=== PATIENT | female | born 1985 | race Caucasian/White ===

== ENCOUNTER 2022-11-12 12:20 | Outpatient (CLI) | payer BC ==
[2022-11-12 23:06] LABS: CANDIDA GROUP DNA POSITIVE (NEGATIVE)
[2022-11-12 23:07] LABS: CANDIDA GLABRATA DNA NEGATIVE (NEGATIVE)
[2022-11-12 23:08] LABS: BACTERIAL VAGINOSIS DNA NEGATIVE (NEGATIVE); CANDIDA KRUSEI DNA NEGATIVE (NEGATIVE); TRICHOMONAS VAGINALIS DNA NEGATIVE (NEGATIVE)
[2022-11-14 07:09] LABS: HIV SCREEN 4TH GENERATION Non Reactive (Non Reactive)
[2022-11-15 01:03] LABS: CHLAMYDIA TRACHOMATIS DNA NEGATIVE (NEGATIVE); NEISSERIA GONORRHOEAE DNA NEGATIVE (NEGATIVE)
[2022-11-15 03:09] LABS: HCV AB Non Reactive (Non Reactive); HSV 2 IGG TYPE SPEC <0.91 index (0.00-0.90); RPR Non Reactive (Non Reactive)
== END 2022-11-12 23:59 | disposition home or self-care (01) ==
LOC: LAB.N 12:20
PROVIDERS: ATTEND Nurse Practitioner
DX: N89.8 Other specified noninflammatory disorders of vagina (principal); Z11.3 Encounter for screening for infections with a predominantly sexual mode of transmission
CPT/HCPCS: 81514; 86592; 86695; 86696; 86803; 87389; 87491; 87591; 87661

== ENCOUNTER 2023-07-03 12:16 | Outpatient (CLI) | payer BC ==
[2023-07-03 12:32] LABS: BASOPHILS % (AUTO) 0.6 %; EOSINOPHILS # (AUTO) 0.1 10^3/uL (0.0-0.7); EOSINOPHILS % (AUTO) 1.6 %; HGB - HEMOGLOBIN 14.8 g/dL (12.0-16.0); LYMPHOCYTES # (AUTO) 2.5 10^3/uL (1.5-3.5); LYMPHOCYTES % (AUTO) 36.8 %; MEAN CORPUSCULAR HEMOGLOBIN 29.4 pg (27.0-31.0); MEAN CORPUSCULAR HGB CONC 32.2 g/dL (32.0-36.0); MEAN CORPUSCULAR VOLUME 91.5 fL (81.0-99.0); MEAN PLATELET VOLUME 9.2 fL (7.9-10.8); MONOCYTES # (AUTO) 0.4 10^3/uL (0.0-1.0); MONOCYTES % (AUTO) 5.7 %; NEUTROPHILS # (AUTO) 3.7 10^3/uL (1.5-6.6); PLT - PLATELET COUNT 353 10^3/uL (130-450); RED BLOOD COUNT 5.03 10^6/uL (4.20-5.40); RED CELL DISTRIBUTION WIDTH 12.2 % (12.0-15.0); WHITE BLOOD COUNT 6.8 x10^3/uL (4.8-10.8)
[2023-07-03 12:50] LABS: ALBUMIN 4.5 g/dL (3.2-5.5); ALBUMIN/GLOBULIN RATIO 1.3 (1.0-2.2); ALKALINE PHOSPHATASE 76 IU/L (42-121); ALT ALANINE AMINOTRANSFERASE 9 IU/L (10-60); AST ASPARTATE AMINOTRANSFERASE 11 IU/L (10-42); BILIRUBIN,TOTAL 0.4 mg/dL (0.2-1.0); BUN - BLOOD UREA NITROGEN 17 mg/dL (6-20); CALCIUM 9.6 mg/dL (8.5-10.3); CARBON DIOXIDE - CO2 30 mmol/L (21-32); CHLORIDE 103 mmol/L (101-111); CHOL/HDL RATIO 3.7 (<4.4); CHOLESTEROL 173 mg/dL; CREATININE 0.7 mg/dL (0.6-1.3); CRP - C-REACTIVE PROTEIN < 0.5 mg/dL (<0.5); GFR - MDRD 95 (>89); GLUCOSE 91 mg/dL (74-104); HDL CHOLESTEROL 47 mg/dL; LDL CHOLESTEROL,CALCULATED 110 mg/dL; LDL/HDL RATIO 2.3 (<4.4); POTASSIUM 3.9 mmol/L (3.5-4.5); SODIUM 138 mmol/L (135-145); TOTAL PROTEIN 7.9 g/dL (6.4-8.9); TRIGLYCERIDES 82 mg/dL (48-352); URIC ACID 5.6 mg/dL (2.3-6.6); VLDL CHOLESTEROL 16 mg/dL
[2023-07-03 15:49] LABS: RHEUMATOID FACTOR NEGATIVE (Negative)
--- NOTE | 2023-07-03 15:52 | XRAY Report ---
PROCEDURE: Knee 4 View BILAT INDICATIONS: KNEE PAIN TECHNIQUE: 4 views of the bilateral knee(s) were acquired. COMPARISON: None. FINDINGS: Bones: No fractures or dislocations. No suspicious bony lesions. There is minimal appearance of b ilateral medial compartment narrowing. No erosions. Bilateral patellar osteophytes are present. Soft tissues: No knee joint effusion. No suspicious soft tissue calcifications or masses. IMPRESSION: Early arthritic change in the medial compartments. Reviewed by: Layne Gill MD on 07/03/2023 3:51 PM PDT Approved by: Layne Gill MD on 07/03/2023 3:51 PM PDT Station ID: [id number]
[2023-07-04 16:08] LABS: ANTI-DNA (DS) AB QN 1 IU/mL (0-9)
[2023-07-05 18:07] LABS: ANTINUCLEAR ANTIBODIES IFA Negative (.); CYCLIC CITRULLINATED PEP IGG/A 2 units (0-19)
== END 2023-07-03 12:17 | disposition home or self-care (01) ==
LOC: DI 12:16
PROVIDERS: ATTEND Nurse Practitioner
DX: M17.0 Bilateral primary osteoarthritis of knee (principal); I10 Essential (primary) hypertension; Z13.220 Encounter for screening for lipoid disorders; F41.9 Anxiety disorder, unspecified; M25.50 Pain in unspecified joint
CPT/HCPCS: 36415; 80053; 80061; 83721; 84443; 84550; 85025; 85651; 86038; 86140; 86200; 86225; 86430

== ENCOUNTER 2023-09-21 18:50 | Outpatient (CLI) | payer BC ==
[2023-09-21 19:10] LABS: BASOPHILS % (AUTO) 0.8 %; HCT - HEMATOCRIT 39.8 % (37.0-47.0); HGB - HEMOGLOBIN 12.9 g/dL (12.0-16.0); LYMPHOCYTES % (AUTO) 64.1 %; MEAN CORPUSCULAR HEMOGLOBIN 29.5 pg (27.0-31.0); MEAN CORPUSCULAR HGB CONC 32.4 g/dL (32.0-36.0); MEAN CORPUSCULAR VOLUME 91.1 fL (81.0-99.0); MEAN PLATELET VOLUME 8.6 fL (7.9-10.8); MONOCYTES % (AUTO) 7.1 %; NEUTROPHILS % (AUTO) 26.8 %; PLT - PLATELET COUNT 291 10^3/uL (130-450); RED BLOOD COUNT 4.37 10^6/uL (4.20-5.40); RED CELL DISTRIBUTION WIDTH 13.1 % (12.0-15.0); WHITE BLOOD COUNT 10.4 x10^3/uL (4.8-10.8)
[2023-09-21 19:19] LABS: ABNORMAL LYMPHS % (MANUAL) 0 %; BAND NEUTROPHILS % (MANUAL) 0 %
[2023-09-21 19:37] LABS: THYROID STIMULATING HORMONE 1.6 uIU/mL (0.34-5.60)
[2023-09-21 19:51] LABS: BASOPHILS # (MANUAL) 0.1 10^3/uL (0-0.1); BASOPHILS % (MANUAL) 1 %; LYMPHOCYTES # (MANUAL) 6.1 10^3/uL (1.5-3.5); LYMPHOCYTES % (MANUAL) 59 %; MONOCYTES # (MANUAL) 0.8 10^3/uL (0.0-1.0); NEUTROPHILS # (MANUAL) 3.3 10^3/uL (1.5-6.6)
[2023-09-21 20:02] LABS: DIFFERENTIAL COMMENT MANUAL DIFFERENTIAL; PLATELET ESTIMATE, MANUAL NORMAL (130-450,000) (NORMAL); PLATELET MORPHOLOGY NORMAL APPEARANCE (NORMAL); RBC MORPHOLOGY (MULTIPLE) NORMAL APPEARANCE (NORMAL); WBC MORPHOLOGY (MULTIPLE) NORMAL APPEARANCE (NORMAL)
== END 2023-09-21 18:51 | disposition home or self-care (01) ==
LOC: LAB 18:50
PROVIDERS: ATTEND Nurse Practitioner
DX: R00.2 Palpitations (principal)
CPT/HCPCS: 36415; 84439; 84443; 85025

== ENCOUNTER 2023-09-21 19:02 | Outpatient (CLI) | payer BC ==
--- NOTE | 2023-09-22 08:57 | Ultrasound Report ---
PROCEDURE: Pelvic w/Transvaginal INDICATIONS: DYSPAREUNIA TECHNIQUE: Real-time scanning was performed of the pelvic organs, with image documentation. Additional endovagi nal scanning was necessary due to incomplete visualization of the adnexal and endometrial structures by transabdominal scanning. COMPARISON: None. FINDINGS: Uterus: Uterus is anteverted and normal in size at 8.6 x 4.1 x 4.7 cm. The myometrium is heterogene ous. The endometrium measures 4.7 mm in combined thickness. Scattered punctate calcifications withi n the endometrium. It mid posterior subserosal fibroid measuring 1 cm. Ovaries: The right ovary measures 3.4 x 1.9 x 3.9 cm, with a calculated ovarian volume of 13.3 cc. The left ovary measures 5.0 x 2.5 x 3.6 cm, with a calculated ovarian volume of 24.1 cc. Bilateral co mplex cysts measuring up to 3.1 cm in the left ovary. Less than 12 follicles can be seen in each ovar y. Other: No pathologic free abdominal or pelvic fluid. IMPRESSION: 1.No cause for patient's symptoms is identified. 2.Complex cysts within the bilateral ovaries with the largest in the left ovary measuring 3.1 cm. Rec ommend 6-12 week follow-up ultrasound. 3.Endometrium is normal in thickness with scattered punctate calcifications. 4.Subserosal fibroid measuring 1 cm. Reviewed by: Clay Kirk MD on 09/22/2023 8:56 AM PST Approved by: Clay Kirk MD on 09/22/2023 8:56 AM PST Station ID: [id number]
== END 2023-09-21 19:03 | disposition home or self-care (01) ==
LOC: DI 19:02
PROVIDERS: ATTEND Nurse Practitioner
DX: N94.10 Unspecified dyspareunia (principal); N83.292 Other ovarian cyst, left side; N83.291 Other ovarian cyst, right side; D25.2 Subserosal leiomyoma of uterus

== ENCOUNTER 2023-10-06 08:00 | Outpatient (CLI) | payer BC ==
[2023-10-06 20:47] LABS: CHLAMYDIA TRACHOMATIS DNA NEGATIVE (NEGATIVE); NEISSERIA GONORRHOEAE DNA NEGATIVE (NEGATIVE)
[2023-10-06 21:34] LABS: BACTERIAL VAGINOSIS DNA POSITIVE (NEGATIVE); CANDIDA GLABRATA DNA NEGATIVE (NEGATIVE); CANDIDA GROUP DNA NEGATIVE (NEGATIVE); CANDIDA KRUSEI DNA NEGATIVE (NEGATIVE); TRICHOMONAS VAGINALIS DNA NEGATIVE (NEGATIVE)
== END 2023-10-06 23:59 | disposition home or self-care (01) ==
LOC: LAB.WC 08:00
PROVIDERS: ATTEND Obstetrics & Gynecology
DX: N94.10 Unspecified dyspareunia (principal)
CPT/HCPCS: 81514; 87491; 87591; 87661

== ENCOUNTER 2023-10-17 15:21 | Outpatient (CLI) | payer BC | END 2023-10-17 15:22 | disposition home or self-care (01) | LOC: LAB 15:21 | PROVIDERS: ATTEND Obstetrics & Gynecology | DX: N89.8 Other specified noninflammatory disorders of vagina (principal) | CPT/HCPCS: 36415; 82670 ==

== ENCOUNTER 2023-10-19 08:00 | Outpatient (CLI) | payer BC ==
[2023-10-19 19:05] LABS: BACTERIAL VAGINOSIS DNA NEGATIVE (NEGATIVE); CANDIDA GLABRATA DNA NEGATIVE (NEGATIVE); CANDIDA GROUP DNA POSITIVE (NEGATIVE); CANDIDA KRUSEI DNA NEGATIVE (NEGATIVE); TRICHOMONAS VAGINALIS DNA NEGATIVE (NEGATIVE)
== END 2023-10-19 23:59 | disposition home or self-care (01) ==
LOC: LAB.N 08:00
PROVIDERS: ATTEND Physician Assistant Medical
DX: J02.9 Acute pharyngitis, unspecified (principal); L29.8 Other pruritus
CPT/HCPCS: 81514; 87070; 87086

== ENCOUNTER 2024-02-22 08:00 | Outpatient (CLI) | payer BC ==
[2024-02-22 23:02] LABS: CHLAMYDIA TRACHOMATIS DNA NEGATIVE (NEGATIVE); NEISSERIA GONORRHOEAE DNA NEGATIVE (NEGATIVE); TRICHOMONAS VAGINALIS DNA NEGATIVE (NEGATIVE)
== END 2024-02-22 23:59 | disposition home or self-care (01) ==
LOC: LAB.WC 08:00
PROVIDERS: ATTEND Obstetrics & Gynecology
DX: Z11.3 Encounter for screening for infections with a predominantly sexual mode of transmission (principal)
CPT/HCPCS: 87491; 87591; 87661

== ENCOUNTER 2024-03-27 08:00 | Outpatient (CLI) | payer BC ==
[2024-03-27 22:51] LABS: BACTERIAL VAGINOSIS DNA POSITIVE (NEGATIVE); CANDIDA GLABRATA DNA NEGATIVE (NEGATIVE); CANDIDA GROUP DNA POSITIVE (NEGATIVE); CANDIDA KRUSEI DNA NEGATIVE (NEGATIVE); TRICHOMONAS VAGINALIS DNA NEGATIVE (NEGATIVE)
== END 2024-03-27 23:59 | disposition home or self-care (01) ==
LOC: LAB.N 08:00
PROVIDERS: ATTEND Physician Assistant Medical
DX: N89.8 Other specified noninflammatory disorders of vagina (principal)
CPT/HCPCS: 81514

== ENCOUNTER 2024-05-04 18:18 | Emergency (ER) | payer BC ==
--- NOTE | 2024-05-04 20:30 | ED Physician Documentation ---
History of Present Illness - Stated complaint Stated Complaint: LT THUMB INJ - Chief complaint Chief Complaint: Ext Problem - Additonal information Additional information: Patient is a 38-year-old female presenting to the emergency department with left thumb pain. Patient symptoms started yesterday after she slammed her thumb. She went to urgent care had subungual hematoma drained. She was supposed to have x-rays done but no orders were placed. Patient notes persistent pain and some bruising to the distal portion of her thumb. Patient notes no obvious deformity hematoma drained has improved her pain of her nail but she continues to have persistent thumb pain. No previous history of injury. Patient is right-handed. PD PAST MEDICAL HISTORY - Past Medical History Past Medical History: No - Past Surgical History Past Surgical History: Yes - Allergies Allergies/Adverse Reactions: Allergies Allergy/AdvReac Type Severity Reaction Status Date / Time No Known Drug Allergies Allergy Verified 05/04/24 18:22 - Social History Does the pt smoke?: No Smoking Status: Never smoker Does the pt drink ETOH?: No Does the pt have substance abuse?: No - Immunizations Immunizations are current?: Yes - POLST Patient has POLST: No PD ED PE NORMAL - Vitals Vital signs reviewed: Yes - General General: Alert and oriented X 3 - HEENT HEENT: Atraumatic - Neck Neck: Supple, no meningeal sign - Cardiac Cardiac: RRR, No gallop - Respiratory Respiratory: No respiratory distress, Clear bilaterally - Abdomen Abdomen: Normal bowel sounds - Derm Derm: Normal color - Extremities Extremities: No deformity, Other (Left thumb shows mild bruising to the distal tip minimal swelling subungual hematoma appreciated with trephination and no significant tenderness on examination. Full range of motion intact.) - Neuro Neuro: Alert and oriented X 3 - Psych Psych: Normal mood Results - Vitals Vitals: Vital Signs - 24 hr 05/04/24 18:22 Temperature 36.8 C Heart Rate 74 Respiratory 16 Rate Blood Pressure 151/84 H O2 Saturation 99 Oxygen O2 Source Room air - Rads (name of study) left thumb Relevant Findings:: EMP independent interpretation of test (tuft fracture to distal phalynx of left thumb) PD Medical Decision Making - ED course Complexity details: reviewed old records, reviewed results ED course: Patient is a 38-year-old female presenting to the emergency department with left thumb pain. Patient symptoms have been going on for approximately 1 day as she jammed it yesterday was seen at urgent care had the nail trephinated she notes significant pain improved but was supposed to have x-rays but no order was placed at urgent care. Patient presents today with persistent thumb pain and mild bruising to distal portion of thumb. Physical exam shows full range of motion intact full sensation intact good capillary refill radial pulse intact no significant pain on palpation of metacarpals and full range of motion of digits 2 through 5 intact. Discussed with patient x-rays obtained here in the emergency department showed tuft fracture to distal portion of left thumb. No significant fracture appreciated to proximal phalynx. Brian thumb was splinted here and she was discharged home. Official read from radiologist had not been performed but did discuss with Dr. Clement here in ED who also reviewed images and agrees with diagnosis. Patient informed of this and will call her if X-rays show any other acute findings. She is agreeable with this plan. Departure - Departure Disposition: 01 Home, Self Care Clinical Impression: Fracture of thumb, left, closed, Pain in extremity Condition: Good Instructions: ED Fx Thumb Ch Comments: I have given you a splint here in the emergency department for your pain your workup here in the emergency department was reassuring most likely fracture to distal portion of left thumb I have given you a splint please wear it as instructed and follow-up with your PCP in outpatient setting. I have given you a work note for work on Monday watch for any numbness tingling discoloration to extremity. Forms: PCP List
[2024-05-04 21:09] VITALS: BP 130/80; O2SAT 100
--- NOTE | 2024-05-04 23:33 | XRAY Report ---
PROCEDURE: Finger(s) LT INDICATIONS: Trauma TECHNIQUE: AP hand, 2 views of the finger(s) acquired. COMPARISON: None. FINDINGS: Bones: No dislocations. No suspicious bony lesions. There is a distal tuft fracture, moderately com minuted, at the distal phalanx of the thumb. No foreign body seen. Soft tissues: No suspicious soft tissue calcifications or masses. IMPRESSION: Acute appearing mildly comminuted distal tuft fracture at the thumb. Reviewed by: Micky Garay MD on 05/04/2024 11:32 PM PDT Approved by: Micky Garay MD on 05/04/2024 11:32 PM PDT Station ID: [id number]
== END 2024-05-04 20:55 | disposition home or self-care (01) ==
LOC: ED 18:18
DX: S62.522A Displaced fracture of distal phalanx of left thumb, initial encounter for closed fracture (principal); W22.8XXA Striking against or struck by other objects, initial encounter
CPT/HCPCS: 99283; 99284

== ENCOUNTER 2024-06-10 18:54 | Emergency (ER) | payer BC ==
[2024-06-10 19:04] VITALS: BP 137/85; O2SAT 99
[2024-06-10 19:14] LABS: BILIRUBIN,URINE NEGATIVE (NEGATIVE); GLUCOSE, URINE (UA) NEGATIVE (NEGATIVE); KETONES,URINE (UA) NEGATIVE (NEGATIVE); LEUKOCYTE ESTERASE, URINE SMALL (NEGATIVE); NITRITE,URINE POSITIVE (NEGATIVE); OCCULT BLOOD,URINE MODERATE (NEGATIVE); PROTEIN,URINE TRACE mg/dL (NEGATIVE); UROBILINOGEN,URINE 0.2 (NORMAL) E.U./dL (NORMAL)
[2024-06-10 19:18] LABS: CLARITY,URINE CLEAR (CLEAR); HCG UR QUAL NEGATIVE
[2024-06-10 19:24] LABS: BACTERIA,URINE Many /HPF (None Seen); RBC,URINE TNTC /HPF (0-5); SQUAMOUS EPITHELIAL CELL,UR FEW Squamous (<= Few); WBC,URINE >25 /HPF (0-5)
--- NOTE | 2024-06-10 19:34 | ED Physician Documentation ---
PD HPI FEMALE - Stated complaint Stated Complaint: - Chief complaint Chief Complaint: UTI - Additional information Additional information: 38-year-old female presents with dysuria urgency and frequency since last night. She has not had flank pain or fever, no nausea or vomiting. She denies any vaginal discharge. She is sexually active with multiple partners and uses protection. She has no specific exposure to STI that she knows of but would like to be tested for gonorrhea and chlamydia. No other concerns today. Review of Systems Constitutional: reports: Reviewed and negative Eyes: reports: Reviewed and negative Ears: reports: Reviewed and negative Nose: reports: Reviewed and negative Throat: reports: Reviewed and negative Cardiac: reports: Reviewed and negative Respiratory: reports: Reviewed and negative GI: reports: Reviewed and negative : reports: Dysuria, Frequency, Hesitancy. denies: Incontinent, Hematuria, Now EGA Skin: reports: Reviewed and negative Musculoskeletal: reports: Reviewed and negative PD PAST MEDICAL HISTORY - Past Medical History Past Medical History: No - Past Surgical History Past Surgical History: Yes - Present Medications Home Medications: Ambulatory Orders Medication Instructions Recorded Confirmed cephALEXin [Keflex] 500 mg PO BID #10 cap 06/10/24 - Allergies Allergies/Adverse Reactions: Allergies Allergy/AdvReac Type Severity Reaction Status Date / Time No Known Drug Allergies Allergy Verified 05/04/24 18:22 - Social History Does the pt smoke?: No Smoking Status: Never smoker Does the pt drink ETOH?: No Does the pt have substance abuse?: No - Immunizations Immunizations are current?: Yes - POLST Patient has POLST: No Results - Vitals Vitals: Vital Signs - 24 hr 06/10/24 19:02 Temperature 36.7 C Heart Rate 83 Respiratory 20 Rate Blood Pressure 137/85 H O2 Saturation 99 Oxygen O2 Source Room air - Labs Labs: Laboratory Tests 06/10/24 19:05 Urine Color YELLOW Urine Clarity CLEAR Urine pH 6.0 Ur Specific [place] 1.025 Urine Protein TRACE Urine Glucose (UA) NEGATIVE Urine Ketones NEGATIVE Urine Occult Blood MODERATE H Urine Nitrite POSITIVE H Urine Bilirubin NEGATIVE Urine Urobilinogen 0.2 (NORMAL) Ur Leukocyte Esterase SMALL H Urine RBC TNTC H Urine WBC >25 H Ur Squamous Epith Cells FEW Squamous Urine Bacteria Many H Ur Microscopic Review INDICATED Urine Culture Comments INDICATED Urine HCG, Qual NEGATIVE PD Medical Decision Making - ED course Complexity details: reviewed results, d/w patient ED course: 38-year-old female presents with dysuria urgency and frequency since last night as described in HPI. She is well-appearing here on physical exam, afebrile nontoxic no acute distress. She has no CVAT or signs of pyelonephritis, no systemic chest symptoms to suggest pyelonephritis or PUD. She has no ureteral stone symptoms. Urinalysis is suggestive of infection and will treat with Keflex pending culture. She was given first dose here along with Pyridium. We will send a gonorrhea chlamydia test at patient's request but no indication for empiric treatment at this time. Patient advised of return precautions if she should develop any worsening symptoms, encouraged to stay well-hydrated and she can take Tylenol as needed for pain. Departure - Departure Disposition: 01 Home, Self Care Clinical Impression: Urinary tract infection Qualifiers: Urinary tract infection type: acute cystitis Hematuria presence: without hematuria Qualified Code(s): N30.00 - Acute cystitis without hematuria Condition: Good Instructions: ED UTI Cystitis Female Prescriptions: cephALEXin [Keflex] 500 mg PO BID #10 cap Comments: As we discussed, you have signs of urinary tract infection on your exam today. I have prescribed antibiotics for this. We will obtain a gonorrhea and chlamydia testing that you requested, and should have the results in the next couple of days. Please abstain from sexual intercourse until we have these results and if anything is positive, we will notify you by phone for adjustment of your antibiotics. The antibiotics were sent to [facility] in [place].
[2024-06-10] MEDS: cephALEXin 250 MG CAPSULE PO STA (19:37)
[2024-06-10] MEDS: PHENAZOPYRIDINE 100 MG TABLET PO STA (19:38)
[2024-06-10] MEDS: NITROFURANTOIN MACRO 100 MG CAPSULE PO STA (19:39)
[2024-06-10 23:08] LABS: CHLAMYDIA TRACHOMATIS DNA NEGATIVE (NEGATIVE); NEISSERIA GONORRHOEAE DNA NEGATIVE (NEGATIVE); TRICHOMONAS VAGINALIS DNA NEGATIVE (NEGATIVE)
== END 2024-06-10 19:39 | disposition home or self-care (01) ==
LOC: ED 18:54
DX: N30.00 Acute cystitis without hematuria (principal)
CPT/HCPCS: 81001; 81025; 87086; 87181; 87491; 87591; 87661; 99283; A9270; 81003